=== PATIENT | male | born 1965 ===

== ENCOUNTER 2025-04-08 15:45 | Outpatient (AMB) | payer OTHER, SELFPAY ==
--- OUTSIDE RECORDS SUMMARY | 2025-04-08 19:05 | XMS_ITS | Encounter Summary ---
Author Organization [facility] Address [address] [place] [address] Care Team Providers Care Manager Intranet Name Role Phone Sean Campbell MD Primary Care Provider [phone] Encounter Details Date Type Department Care Team (Late st Contact Info) Description 09/24/2024 Lab Requisition [facility] - Main Lab [address] [facility] [place] [address] Sean Cameron MD [address] [facility] [address] [place] [address] Benign essential microscopic hematuria Social History Tobacco Use Types Packs/Day Years Used Date Smoking Tobacco: Former Cigarettes Smokeless Tobacco: Former Alcohol Use Standard Drinks/Week Comments Yes 0 (1 standard drink = 0.6 oz pur e alcohol) 1-2 drinks daily Sex and Gender Information Value Date Recorded Sex Assigned at Not on file Legal Sex Male 10:06 AM EST Gender Identity Not on file Sexual Orientation Not on file documented as of this encounter Plan of Treatment Not on file documented as of this encounter Procedures Procedure Name Priority Date/Time Associated Diagnosis Comments AP OUTSIDE CONSULT Routine 09/18/2024 12 :00 AM EDT Benign essential microscopic hematuria documented in this encounter Results * Anatomic pathology outside consult (09/18/2024 12:00 AM EDT) Final Diagnosis Urine, Voided, ([id number]): Negative for high grade urothelial carcinoma. Results of UroVysion fluorescence in situ hybridization (FISH) testing: CEP3: Normal CEP7: Normal CEP17: Normal LSI 9p21: Normal Interpretation: Normal profile Controls stained appropriately. Note: The results are intended as a screening device and should be interpreted in association with other clinical and pathological findings. 09/26/2024 4:41 PM EDT [facility] Clinical Information Benign essential microscopic hematuria R31.1 Urine Cytology/FISH (now) 09/26/2024 4:41 PM EDT [facility] Gross Description A. Urine, Voided, ([id number]): Received one ThinPrep slide for cytology and one ThinPrep slide for UroVysion FISH 09/26/2024 4:41 PM EDT [facility] Disclaimer Unless otherwise specified, all tissue is 10% NB formalin fixed and paraffin embedded. Technical pathology services provided by [facility] at [address] [place] [address] [address], [place] [address] (CLIA #[id number]/Andreia Dixon MD, Stripping Shovel Operator) 09/26/2024 4:41 PM EDT [facility] Tissue Urine specimen from urethra / Unknown 09/18/2024 09/24/2024 10:10 AM EDT us Sean Cameron MD LAB PATHOLOGY ORDERABLES Final R esult [facility] [address] [place] [address], documented in this encounter Visit Diagnoses Diagnosis Benign essential microscopic hematuria documented in this encounter Care Teams Manager Intranet Relationship Specialty Start Date End Date Sean Campbell MD [address] [place] [phone] PCP - General Internal Medicine 07/28/24 documented as of this encounter
--- OUTSIDE RECORDS SUMMARY | 2025-04-08 19:05 | XMS_ITS | Clinical Summary ---
Author Organization [address] [place] [address] [place] [phone] Phone Care Team Providers Care Splunk Architect Name Role Phone Sean Campbell MD Primary Care Provider Allergies No known active allergies Medications potassium citrate (UROCIT-K) 15 mEq SR tablet Take 1 tablet (15 mEq total) by mouth 1 (one) time each day. 07/09/2024 Active mv-min/folic/vit K/lycop/coQ10 (DAILY MULTIVITAMIN ORAL) Take 1 tablet by mouth 1 (one) time each day. Active Active Problems Problem Noted Date Diagnosed Date Chest pain 09/15/2024 Overview (09/15/2024): 08/21/24 STRESS TEST ONLY EXERCISE 08/21/2024, 08/23/2024 08/21/2024 Interpretation Summary Impression Normal exercise stress test Above average exercise capacity No evidence of coronary ischemia by EKG or symptoms Signed by: Vilma Gannon on 08/21/2024 11:24 AM, Signed by: Moe Apodaca on 08/23/2024 8:39 AM Assessment & Plan (09/15/2024 1:08 PM EDT): Noncardiac. Stress test and echocardiogram reassuring. No further workup at this time. Syncope 09/11/2024 Overview (09/15/2024): June 2024 -admitted to [facility] with chest pain with complication of vasovagal syncope found to have dehydration due to diarrhea in the setting of norovirus; orthostatics were markedly positive; inpatient echocardiogram showed preserved left ventricular systolic function with no significant regional wall motion abnormalities, average peak longitudinal strain of -17.7%, normal LV diastolic function, normal LV cavity size and wall thickness, no hemodynamically significant valvular disease and no other significant findings Assessment & Plan (09/15/2024 1:08 PM EDT): Isolated event in the setting of dehydration related to norovirus while inpatient at [facility]. He was on telemetry at the time with no arrhythmias. Echocardiogram and stress test reassuring. No further workup. Encouraged hydration and use of compression stockings. Medical History Medical History Date Comments Syncope Acute gastroenteropathy due to Norovirus Anemia Enlarged prostate Bilateral renal cysts Chest pain Social History Tobacco Use Types Packs/Day Years Used Date Smoking Tobacco: Former Cigarettes Smokeless Tobacco: Former Tobacco Cessation:Counseling Given: Not Answered Alcohol Use Standard Drinks/Week Comments Yes 0 (1 standard drink = 0.6 oz pur e alcohol) 1-2 drinks daily Sex and Gender Information Value Date Recorded Sex Assigned at Not on file Legal Sex Male 10:06 AM EST Gender Identity Not on file Sexual Orientation Not on file Obstetrics History Last Filed Vital Signs Vital Sign Reading Time Taken Comments Blood Pressure 136/80 09/15/2024 12:34 PM EDT Pulse 84 09/15/2024 12:34 PM EDT Temperature - - Respiratory Rate - - Oxygen Saturation 97% 09/15/2024 12:34 PM EDT Inhaled Oxygen Concentration - - Weight 93.5 kg (206 lb 3.2 oz) 09/15/2024 12:34 PM EDT Height 185.4 cm (6' 1 ) 09/15/2024 12:34 PM EDT Body Mass Index 27.2 09/15/2024 12:34 PM EDT Plan of Treatment Health Maintenance Due Date Last Done Comments Colorectal Cancer Screening: Colonoscopy 1965 Pneumococcal Vaccine: 50+ Years (1 of 1 - PCV) 2014 Zoster Vaccines (1 of 2) 2014 Depression Screening 06/25/2024 Cholesterol Screening (Lipid Panel) 07/28/2024 HIV Screening 07/28/2024 Hepatitis C Screening 07/28/2024 Social Influencers of Health Screening 07/28/2024 COVID-19 Vaccine ( season) 2025 06/21/2021, 07/13/2020, 06/22/2020 Influenza Vaccine (#1) 2025 , 03/29/2020, 06/02/2013, Additional history exists DTaP,Tdap,and Td Vaccines (2 - Td or Tdap) 10/22/2031 10/21/2021 RSV Immunization Adult Patients (1 - 1-dose 75+ series) 2039 HIB Vaccines Aged Out No longer eligi ble based on patient's age to complete this topic HPV Vaccines Aged Out No longer eligi ble based on patient's age to complete this topic Hepatitis A Vaccines Aged Out No long er eligible based on patient's age to complete this topic Hepatitis B Vaccines Aged Out No long er eligible based on patient's age to complete this topic IPV Vaccines Aged Out No longer eligi ble based on patient's age to complete this topic MMR Vaccines Aged Out No longer eligi ble based on patient's age to complete this topic Meningococcal ACWY Vaccine Aged Out N o longer eligible based on patient's age to complete this topic Meningococcal B Vaccine Aged Out No l onger eligible based on patient's age to complete this topic RSV Immunization Patients Under 20 months Aged Out No longer eligible based on patient's age to complete this topic Varicella Vaccines Aged Out No longer eligible based on patient's age to complete this topic Insurance [facility] Care Teams Splunk Architect Relationship Specialty Start Date End Date Sean Campbell MD [address] [place] [phone] PCP - General Internal Medicine 07/28/24
== END 2025-04-08 15:46 | disposition home or self-care (01) ==
LOC: HO.HMGAL 15:45
PROVIDERS: PCP Internal Medicine; Visit Provider Registered Nurse Emergency
DX: J30.89 Other allergic rhinitis (principal)
CPT/HCPCS: 95117; 95165

== ENCOUNTER 2025-06-08 15:50 | Outpatient (AMB) | payer OTHER, SELFPAY ==
--- OUTSIDE RECORDS SUMMARY | 2025-06-08 22:14 | XMS_ITS | Clinical Summary ---
Author Organization [address] [place] [address] [place] [phone] Phone Care Team Providers Care Venetian Blind Machine Operator Name Role Phone Sean Campbell MD Primary Care Provider [phone] Allergies No known active allergies Medications potassium [...] 09/11/2024 Overview (09/15/2024): June 2024 -admitted to [facility] with chest pain with complication of [...] dehydration related to norovirus while inpatient at [facility]. He was on telemetry at the [...] on file Sexual Orientation Not on file Last Filed Vital Signs Vital Sign Reading [...] Influencers of Health Screening 07/28/2024 COVID-19 Vaccine (4 - 2025-26 season) 2025 06/21/2021, 07/13/2020, 06/22/2020 Influenza Vaccine [...] age to complete this topic Insurance [facility] Care Teams Venetian Blind Machine Operator Relationship Specialty Start Date End Date Sean Campbell MD [address] [place] [phone] PCP - General Internal Medicine 07/28/24
--- OUTSIDE RECORDS SUMMARY | 2025-06-08 22:14 | XMS_ITS | Encounter Summary ---
Author Organization [facility] Address [address] [place] [address] Care Team Providers Care Geospatial Intelligence Analyst Name Role Phone Sean Campbell MD Primary Care Provider [phone] Encounter Details Date Type Department Care Team (Late st Contact Info) Description 09/24/2024 Lab Requisition [facility] - Main Lab [address] [facility] [place] [address] Sean Cameron MD [address] [facility] [address] [place] [address] Benign essential microscopic hematuria Social History Tobacco [...] 12:00 AM EDT) Final Diagnosis Urine, Voided, ([id number]): Negative for high grade urothelial carcinoma. Results of UroVysion fluorescence in situ hybridization (FISH) testing: CEP3: Normal CEP7: Normal CEP17: Normal LSI 9p21: Normal Interpretation: Normal profile Controls stained appropriately. Note: The results are intended as a screening device and should be interpreted in association with other clinical and pathological findings. 09/26/2024 4:41 PM EDT [facility] at 1640 EDT Clinical Information Benign essential microscopic hematuria R31.1 Urine Cytology/FISH (now) 09/26/2024 4:41 PM EDT [facility] Gross Description A. Urine, Voided, ([id number]): Received one ThinPrep slide for cytology and one ThinPrep slide for UroVysion FISH 09/26/2024 4:41 PM EDT [facility] Disclaimer Unless otherwise specified, all tissue is 10% NB formalin fixed and paraffin embedded. Technical pathology services provided by [facility] at [address] [facility] [address], [place] [address] (CLIA #[id number]/Andreia Dixon MD, Insulation Cutter And Former) 09/26/2024 4:41 PM EDT [facility] Tissue Urine specimen from urethra / Unknown 09/18/2024 09/24/2024 10:10 AM EDT us Sean Cameron MD LAB PATHOLOGY ORDERABLES Final R esult [facility] [address] [place] [address], documented in this encounter Visit Diagnoses Diagnosis Benign essential microscopic hematuria documented in this encounter Care Teams Geospatial Intelligence Analyst Relationship Specialty Start Date End Date Sean Campbell MD [address] [place] [phone] PCP - General Internal Medicine 07/28/24 documented as of this encounter
== END 2025-06-08 15:51 | disposition home or self-care (01) ==
LOC: HO.HMGAL 15:50
PROVIDERS: PCP Internal Medicine; Visit Provider Registered Nurse Emergency
DX: J30.89 Other allergic rhinitis (principal)
CPT/HCPCS: 95117; 95165